=== PATIENT | male | born 1950 | race African-American/Black ===

== ENCOUNTER 2020-10-02 10:41 | Emergency (ER) | payer MEDICARE, MEDICAID ==
[~2020-10-02] VITALS: Ht 177.8 cm; Wt 122.0 kg
[~2020-10-02 10:41] MED LIST: UNK MEDS
[2020-10-02] MEDS ORDERED: KETOROLAC 30MG/ML VIAL IV STA (11:12)
[2020-10-02 12:27] LABS: BASOPHILS % 0.5 % (0.0-2.0); EOSINOPHILS % 3.1 % (0.0-5.0); HEMATOCRIT. 42.5 % (42.0-52.0); LYMPHOCYTES % 27.2 % (20.0-50.0); MEAN CORPUSCULAR VOLUME 94.3 fL (80.0-94.0); MEAN PLATELET VOLUME 8.7 fl (7.4-10.4); MONOCYTES % 10.6 % (2.0-8.0); NEUTROPHILS % 58.6 % (40.0-76.0); PLATELET 189 x1000/uL (130-400); RED CELL DISTRIBUTION WIDTH 13.9 % (11.6-14.6)
[2020-10-02 12:30] LABS: CHLORIDE 111 mEq/L (98-107)
[2020-10-02 12:34] LABS: INR 0.9; PROTHROMBIN TIME 10.2 sec (9.6-11.0)
[2020-10-02 12:38] LABS: CLARITY URINE CLEAR (CLEAR); COLOR URINE YELLOW (YELLOW); KETONES URINE NEGATIVE (NEGATIVE); LEUKOCYTE ESTERASE URINE NEGATIVE (NEGATIVE); NITRITE URINE NEGATIVE (NEGATIVE); OCCULT BLOOD URINE NEGATIVE (NEGATIVE); PROTEIN URINE NEGATIVE (NEGATIVE); SPECIFIC GRAVITY URINE 1.023 (1.005-1.030)
[2020-10-02 13:21] VITALS: BP 143/71
[2020-10-02] MEDS ORDERED: IBUP-2028 PO (13:28)
== END 2020-10-02 13:55 | disposition home or self-care (01) ==
LOC: ER 10:41
DX: R10.9 Unspecified abdominal pain (principal); M54.30 Sciatica, unspecified side; I10 Essential (primary) hypertension; Z88.0 Allergy status to penicillin
CPT/HCPCS: 36415; 74176; 80053; 81003; 83690; 85025; 85610; 96374; 99284; J1885